=== PATIENT | male | born 1940 | race Hispanic/Latino ===

== ENCOUNTER → 2017-05-15 | Outpatient (CLI) | payer MEDICARE ==
[~2017-05-15] MED LIST: ASPI-1197 PO; CARV6.25 PO; FOLIC ACID PO; GUAI600T50 PO; LANS15CA17 PO; LISI-617 PO; LISI2.5T2 PO; LOVA40TA2 PO; MECL-111 PO; MECL-129 PO; MELO-108 PO; METO-408 PO; OMEP20CA10 PO; SPIR25TA4 PO; VITAMIN B12 PO
== END | disposition home or self-care (01) ==
LOC: SHCH 12:47
PROVIDERS: ATTEND Internal Medicine Cardiovascular Disease
DX: I42.9 Cardiomyopathy, unspecified (principal)
CPT/HCPCS: 93306

== ENCOUNTER → 2017-07-12 | Outpatient (CLI) | payer MEDICARE ==
[~2017-07-12] VITALS: Ht 165.1 cm; Wt 75.0 kg
[~2017-07-12] MED LIST changes: +CEFAZOLIN SODIUM 1 GM VIAL IVP SCH; -SPIR25TA4 PO; +SPIR25TA6 PO
[2017-07-12 11:40] VITALS: BP 113/57
[2017-07-12 12:10] LABS: BASOPHILS % (AUTO) 0.7 % (0.0-5.0); EOSINOPHILS % (AUTO) 2.8 % (0.0-8.0); HEMATOCRIT 38.8 % (42-54); LYMPHOCYTES % (AUTO) 39.4 % (21.0-51.0); MEAN CORPUSCULAR HEMOGLOBIN 31.4 pg (27.0-33.0); MEAN CORPUSCULAR HGB CONC 34.7 g/dL (32.0-36.0); MEAN CORPUSCULAR VOLUME 90.4 fL (79-99); MONOCYTES % (AUTO) 9.6 % (3.0-13.0); NEUTROPHILS % (AUTO) 47.5 % (40.0-77.0); NUCLEATED RED BLOOD CELLS 0.1 % (0.0-0.19); PLATELET COUNT (AUTO) 328 K/uL (130-400); RED BLOOD CELL COUNT(AUTO) 4.29 MIL/uL (4.50-6.20); RED CELL DISTRIBUTION WIDTH 14.8 % (11.0-15.5); WHITE BLOOD COUNT (AUTO) 6.5 K/uL (4.8-10.8)
[2017-07-12 12:11] LABS: APPEARANCE,URINE Clear (CLEAR); BILIRUBIN,URINE Negative (NEGATIVE); COLOR,URINE Yellow (YELLOW); GLUCOSE, URINE (UA) Negative (NEGATIVE); KETONES,URINE Negative (NEGATIVE); LEUKOCYTE ESTERASE ,URINE Negative (NEGATIVE); NITRATE,URINE Negative (NEGATIVE); OCCULT BLOOD,URINE Small (NEGATIVE); PROTEIN,URINE Negative (NEGATIVE); UROBILINOGEN,URINE 0.2 mg/dL (0.2-1.0)
[2017-07-12 12:20] LABS: CREATININE 1.2 mg/dL (0.5-1.5); POTASSIUM 4.2 mmol/L (3.5-5.1)
[2017-07-12 12:21] LABS: INR 0.97 (0.85-1.15); PARTIAL THROMBOPLASTIN TIME 26.2 SEC (26.3-35.5); PROTHROMBIN TIME 10.2 SEC (9.6-11.6)
[2017-07-12 12:32] LABS: BACTERIA,URINE Rare /HPF (None Seen); SQUAMOUS EPITHELIAL CELL,UR 0-2 /HPF (0-2); WBC,URINE 0-1 /HPF (0-1)
== END | disposition home or self-care (01) ==
LOC: DAH 10:00 → EDSTATUS 12:00
PROVIDERS: ATTEND Orthopaedic Surgery Adult Reconstructive Orthopaedic Surgery
DX: Z01.818 Encounter for other preprocedural examination (principal); M16.12 Unilateral primary osteoarthritis, left hip; R79.1 Abnormal coagulation profile
CPT/HCPCS: 36415; 80048; 81001; 85025; 85610; 85730; 86850; 86900; 86901; 93005

== ENCOUNTER 2021-02-04 03:32 | Emergency (ER) | payer MEDICARE ==
[~2021-02-04] VITALS: Ht 165.1 cm; Wt 77.1 kg
[~2021-02-04 03:32] MED LIST changes: -ASPI-1197 PO; -CARV6.25 PO; -CEFAZOLIN SODIUM 1 GM VIAL IVP SCH; -GUAI600T50 PO; -LANS15CA17 PO; -LISI-617 PO; -LISI2.5T2 PO; +LISI5TAB21 PO; -MECL-111 PO; -MECL-129 PO; +MECL-160 PO; -MELO-108 PO; -OMEP20CA10 PO; +OMEP20CA12 PO; -SPIR25TA6 PO
[2021-02-04 04:19] LABS: APPEARANCE,URINE Clear (CLEAR); BILIRUBIN,URINE Negative (NEGATIVE); COLOR,URINE Yellow (YELLOW); GLUCOSE, URINE (UA) Negative (NEGATIVE); KETONES,URINE Negative (NEGATIVE); LEUKOCYTE ESTERASE ,URINE Negative (NEGATIVE); NITRATE,URINE Negative (NEGATIVE); OCCULT BLOOD,URINE Moderate (NEGATIVE); PROTEIN,URINE Negative (NEGATIVE); UROBILINOGEN,URINE 0.2 mg/dL (0.2-1.0)
[2021-02-04 04:54] LABS: BASOPHILS % (AUTO) 0.5 % (0.0-5.0); EOSINOPHILS % (AUTO) 1.2 % (0.0-8.0); HEMATOCRIT 35.6 % (42-54); LYMPHOCYTES % (AUTO) 23.3 % (21.0-51.0); MEAN CORPUSCULAR HEMOGLOBIN 30.6 pg (27.0-33.0); MEAN CORPUSCULAR VOLUME 89.9 fL (79-99); MONOCYTES % (AUTO) 8.5 % (3.0-13.0); PLATELET COUNT (AUTO) 280 K/uL (130-400); RED BLOOD CELL COUNT(AUTO) 3.96 MIL/uL (4.50-6.20); RED CELL DISTRIBUTION WIDTH 13.5 % (11.0-15.5); WHITE BLOOD COUNT (AUTO) 6.4 K/uL (4.8-10.8)
[2021-02-04 05:02] LABS: CREATININE 1.3 mg/dL (0.5-1.5)
[2021-02-04 05:06] LABS: ALBUMIN 3.8 g/dL (3.5-5.0); BILIRUBIN,TOTAL 0.3 mg/dL (0.2-1.0); TOTAL PROTEIN, SERUM 7.7 g/dL (6.0-8.3)
[2021-02-04 05:16] LABS: INR 1.01 (0.85-1.15)
[2021-02-04 06:26] VITALS: BP 109/50
== END 2021-02-04 06:40 | disposition home or self-care (01) ==
LOC: EDH 03:32
DX: S01.01XA Laceration without foreign body of scalp, initial encounter (principal); F10.129 Alcohol abuse with intoxication, unspecified; E78.00 Pure hypercholesterolemia, unspecified; I10 Essential (primary) hypertension; Z79.02 Long term (current) use of antithrombotics/antiplatelets; Z79.899 Other long term (current) drug therapy; X58.XXXA Exposure to other specified factors, initial encounter; Y93.89 Activity, other specified; Y92.89 Other specified places as the place of occurrence of the external cause; Y99.8 Other external cause status
CPT/HCPCS: 12001; 36415; 70450; 72125; 80053; 81003; 85025; 85610; 87088

== ENCOUNTER 2021-02-16 13:00 | Emergency (ER) | payer MEDICARE ==
[~2021-02-16] VITALS: Ht 157.5 cm; Wt 72.6 kg
[2021-02-16 13:02] VITALS: BP 114/57
[2021-02-16] MEDS ORDERED: BENZONATATE 100 MG CAPSULE PO SCH (16:30)
[2021-02-16] MEDS ORDERED: BENZ-39 PO (16:38)
== END 2021-02-16 16:46 | disposition home or self-care (01) ==
LOC: EDH 13:00
DX: R05.9 Cough, unspecified (principal); Z48.02 Encounter for removal of sutures; E78.00 Pure hypercholesterolemia, unspecified; I10 Essential (primary) hypertension; Z79.899 Other long term (current) drug therapy; Z85.820 Personal history of malignant melanoma of skin; Z90.49 Acquired absence of other specified parts of digestive tract

== ENCOUNTER 2021-02-21 21:09 | Emergency (ER) | payer MEDICARE ==
[~2021-02-21] VITALS: Ht 165.1 cm; Wt 4.7 kg
[~2021-02-21 21:09] MED LIST changes: +BENZ-39 PO
[2021-02-21 21:37] VITALS: BP 145/64
== END 2021-02-21 21:53 | disposition home or self-care (01) ==
LOC: EDH 21:09
DX: F43.9 Reaction to severe stress, unspecified (principal); I10 Essential (primary) hypertension; E78.00 Pure hypercholesterolemia, unspecified; Z79.899 Other long term (current) drug therapy; Z95.5 Presence of coronary angioplasty implant and graft; Z96.642 Presence of left artificial hip joint
CPT/HCPCS: 99281